=== PATIENT | female | born 2000 | race Caucasian/White ===

== ENCOUNTER 2018-06-25 19:12 | Emergency (ER) | payer OTHER ==
--- NOTE | 2018-06-25 19:23 | ER Report ---
History and Physical Time Seen By MD: 19:22 HPI/ROS CHIEF COMPLAINT: Fever, neck pain, headache HISTORY OF PRESENT ILLNESS: 18-year-old female patient presents to emergency room after having been referred by urgent care. Patient states that she has been ill for approximately one week. She states she's gotten significantly sicker over the last day. She states that she had headache, neck ache, back pain which started today. She states that there is nothing seems to help. She states she's been taking Advil, Aleve with no improvement. She states she had taken some Tylenol cough and cold medicine which initially got sick but has not taken that recently. Patient states that she's not had any nausea, vomiting or diarrhea. She states she has had a little bit of a cough, sore throat. Patient was referred to the emergency room as they were concerned about possible meningeal signs. REVIEW OF SYSTEMS: Respiratory: As noted above Cardiovascular: No chest pain, no palpitations. Gastrointestinal: No vomiting, no abdominal pain. Musculoskeletal: No back pain. Allergies: Coded Allergies: No Known Drug Allergies (Unverified , 06/25/18) Home Meds Active Scripts Ketorolac Tromethamine (KETOROLAC TROMETHAMINE) 10 Mg Tab, 10 MG PO Q6H, #20 TAB Prov:ALEXANDRA RAMÍREZ [facility] 06/25/18 Oseltamivir Phosphate (TAMIFLU) 75 Mg Cap, 75 MG PO BID, #9 CAP Prov:ALEXANDRA RAMÍREZ [facility] 06/25/18 Reported Medications Albuterol Sulfate 90 Mcg/Act (PROAIR HFA 90 MCG/ACT) 8.5 Gm Hfa.aer.ad, 1-2 PUFF IH 3-4XD, INHALER 06/25/18 Colesevelam Hcl (WELCHOL) 625 Mg Tablet, 2 TAB PO BID 06/25/18 Amitriptyline Hcl (AMITRIPTYLINE HCL) 10 Mg Tablet, 20 MG PO QHS, #10 TAB 06/25/18 Dicyclomine Hcl (DICYCLOMINE HCL) 20 Mg Tablet, 20 MG PO TID 06/25/18 Past Medical/Surgical History Patient has a past medical history of asthma, Crohn's, endometriosis. Patient has surgical history of cholecystectomy. Reviewed Nurses Notes: Yes Constitutional Vital Sign - Last 24 Hours 06/25/18 06/25/18 06/25/18 06/25/18 19:17 19:20 19:27 19:42 Temp 99.7 Pulse 123 136 115 Resp 16 B/P (MAP) 149/100 (116) 149/100 Pulse Ox 96 97 99 O2 Delivery Room Air 06/25/18 06/25/18 06/25/18 06/25/18 19:57 20:14 20:19 20:30 Pulse 116 117 B/P (MAP) 134/78 (96) 141/96 (111) Pulse Ox 100 100 06/25/18 06/25/18 06/25/18 06/25/18 20:34 21:00 21:04 21:19 Pulse 119 119 121 B/P (MAP) 120/74 (89) Pulse Ox 94 95 94 06/25/18 06/25/18 21:27 21:30 Temp 100.7 B/P (MAP) 118/78 (91) Physical Exam General Appearance: The patient is alert, has no immediate need for airway protection and no current signs of toxicity. Patient is warm to the touch. ENT: Tympanic membranes are pearly-ramirez, auditory canals are patent, mixed membranes are moist. Respiratory: Chest is non tender, lungs are clear to auscultation. Cardiac: regular rate and rhythm Gastrointestinal: Abdomen is soft and non tender, no masses, bowel sounds normal. Musculoskeletal: Neck: Neck is supple and non tender. Extremities have full range of motion and are non tender. Skin: No rashes or lesions. DIFFERENTIAL DIAGNOSIS: After history and physical exam differential diagnosis was considered for fever in adults including but not limited to pneumonia, urinary tract infection, viral syndrome, and influenza. Medical Decision Making Data Points Result Diagram: 06/25/18194606/25/181946 Laboratory Hematology Test 06/25/18 19:47 06/25/18 20:15 Red Blood Count 5.35 M/uL (4.17-5.56) Mean Corpuscular Volume 87.1 fL (80.0-96.0) Mean Corpuscular Hemoglobin 29.3 pg (26.0-33.0) Mean Corpuscular Hemoglobin Concent 33.6 g/dL (32.0-36.0) Red Cell Distribution Width 13.1 % (11.5-14.5) Mean Platelet Volume 7.3 fL (7.2-11.1) Neutrophils (%) (Auto) 83.2 % (39.4-72.5) Lymphocytes (%) (Auto) 5.9 % (17.6-49.6) Monocytes (%) (Auto) 9.2 % (4.1-12.4) Eosinophils (%) (Auto) 0.6 % (0.4-6.7) Basophils (%) (Auto) 1.1 % (0.3-1.4) Nucleated RBC Relative Count (auto) 0.0 /100WBC Neutrophils # (Auto) 4.4 K/uL (2.0-7.4) Lymphocytes # (Auto) 0.3 K/uL (1.3-3.6) Monocytes # (Auto) 0.5 K/uL (0.3-1.0) Eosinophils # (Auto) 0.0 K/uL (0.0-0.5) Basophils # (Auto) 0.1 K/uL (0.0-0.1) Nucleated RBC Absolute Count (auto) 0.00 K/uL Erythrocyte Sedimentation Rate 7 mm/HOUR (0-20) Sodium Level 139 mmol/L (137-145) Potassium Level 3.4 mmol/L (3.5-5.0) Chloride Level 104 mmol/L (98-107) Carbon Dioxide Level 23 mmol/L (22-31) Blood Urea Nitrogen 7 mg/dl (7-18) Creatinine 0.60 mg/dl (0.52-1.04) Glomerular Filtration Rate Calc > 60.0 Random Glucose 85 mg/dl (75-110) Calcium Level 9.5 mg/dl (8.4-10.2) Total Bilirubin 0.5 mg/dl (0.2-1.3) Aspartate Amino Transf (AST/SGOT) 22 U/L (0-35) Alanine Aminotransferase (ALT/SGPT) 28 U/L (0-56) Alkaline Phosphatase 68 U/L (0-126) C-Reactive Protein 1.3 mg/dl (<1.0) Total Protein 7.8 g/dl (6.3-8.2) Albumin 4.8 g/dl (3.5-5.0) Human Chorionic Gonadotropin, Qual Negative (NEGATIVE) Monoscreen Negative (NEGATIVE) Influenza Virus Type A (PCR) Positive (NEGATIVE) Influenza Virus Type B (PCR) Negative (NEGATIVE) Urine Color Straw Urine Clarity Clear Urine pH 8.0 pH (4.8-9.5) Urine Specific Mullin 1.011 Urine Protein Negative mg/dL (NEGATIVE) Urine Glucose (UA) Negative mg/dL (NEGATIVE) Urine Ketones Trace mg/dL (NEGATIVE) Urine Blood Small (NEGATIVE) Urine Nitrite Negative (NEGATIVE) Urine Bilirubin Negative (NEGATIVE) Urine Urobilinogen Negative mg/dL (0.2-1.9) Urine Leukocyte Esterase Negative (NEGATIVE) Urine RBC None /HPF (0-2/HPF) Urine WBC <1 /HPF (0-5/HPF) Urine Squamous Epithelial Cells Many /LPF (</=FEW) Urine Bacteria Negative /HPF (NONE-FEW) Urine Mucus None /HPF (NONE-FEW) Chemistry Test 06/25/18 19:47 06/25/18 20:15 White Blood Count 5.2 k/uL (4.5-11.0) Red Blood Count 5.35 M/uL (4.17-5.56) Hemoglobin 15.6 g/dL (12.0-16.0) Hematocrit 46.6 % (34.0-47.0) Mean Corpuscular Volume 87.1 fL (80.0-96.0) Mean Corpuscular Hemoglobin 29.3 pg (26.0-33.0) Mean Corpuscular Hemoglobin Concent 33.6 g/dL (32.0-36.0) Red Cell Distribution Width 13.1 % (11.5-14.5) Platelet Count 274 K/uL (150-450) Mean Platelet Volume 7.3 fL (7.2-11.1) Neutrophils (%) (Auto) 83.2 % (39.4-72.5) Lymphocytes (%) (Auto) 5.9 % (17.6-49.6) Monocytes (%) (Auto) 9.2 % (4.1-12.4) Eosinophils (%) (Auto) 0.6 % (0.4-6.7) Basophils (%) (Auto) 1.1 % (0.3-1.4) Nucleated RBC Relative Count (auto) 0.0 /100WBC Neutrophils # (Auto) 4.4 K/uL (2.0-7.4) Lymphocytes # (Auto) 0.3 K/uL (1.3-3.6) Monocytes # (Auto) 0.5 K/uL (0.3-1.0) Eosinophils # (Auto) 0.0 K/uL (0.0-0.5) Basophils # (Auto) 0.1 K/uL (0.0-0.1) Nucleated RBC Absolute Count (auto) 0.00 K/uL Erythrocyte Sedimentation Rate 7 mm/HOUR (0-20) Glomerular Filtration Rate Calc > 60.0 Calcium Level 9.5 mg/dl (8.4-10.2) Total Bilirubin 0.5 mg/dl (0.2-1.3) Aspartate Amino Transf (AST/SGOT) 22 U/L (0-35) Alanine Aminotransferase (ALT/SGPT) 28 U/L (0-56) Alkaline Phosphatase 68 U/L (0-126) C-Reactive Protein 1.3 mg/dl (<1.0) Total Protein 7.8 g/dl (6.3-8.2) Albumin 4.8 g/dl (3.5-5.0) Human Chorionic Gonadotropin, Qual Negative (NEGATIVE) Monoscreen Negative (NEGATIVE) Influenza Virus Type A (PCR) Positive (NEGATIVE) Influenza Virus Type B (PCR) Negative (NEGATIVE) Urine Color Straw Urine Clarity Clear Urine pH 8.0 pH (4.8-9.5) Urine Specific Mullin 1.011 Urine Protein Negative mg/dL (NEGATIVE) Urine Glucose (UA) Negative mg/dL (NEGATIVE) Urine Ketones Trace mg/dL (NEGATIVE) Urine Blood Small (NEGATIVE) Urine Nitrite Negative (NEGATIVE) Urine Bilirubin Negative (NEGATIVE) Urine Urobilinogen Negative mg/dL (0.2-1.9) Urine Leukocyte Esterase Negative (NEGATIVE) Urine RBC None /HPF (0-2/HPF) Urine WBC <1 /HPF (0-5/HPF) Urine Squamous Epithelial Cells Many /LPF (</=FEW) Urine Bacteria Negative /HPF (NONE-FEW) Urine Mucus None /HPF (NONE-FEW) Urinalysis Test 06/25/18 20:15 Urine Color Straw Urine Clarity Clear Urine pH 8.0 pH (4.8-9.5) Urine Specific Mullin 1.011 Urine Protein Negative mg/dL (NEGATIVE) Urine Glucose (UA) Negative mg/dL (NEGATIVE) Urine Ketones Trace mg/dL (NEGATIVE) Urine Blood Small (NEGATIVE) Urine Nitrite Negative (NEGATIVE) Urine Bilirubin Negative (NEGATIVE) Urine Urobilinogen Negative mg/dL (0.2-1.9) Urine Leukocyte Esterase Negative (NEGATIVE) Urine RBC None /HPF (0-2/HPF) Urine WBC <1 /HPF (0-5/HPF) Urine Squamous Epithelial Cells Many /LPF (</=FEW) Urine Bacteria Negative /HPF (NONE-FEW) Urine Mucus None /HPF (NONE-FEW) EKG/Imaging Imaging Study: Frontal and lateral views of the chest Indication: Fever Comparison study: None Findings: PA and lateral views of the chest demonstrate no evidence of acute infiltrate. There is no evidence of pleural effusion. There is no evidence of pneumothorax. The mediastinal, cardiac, and diaphragmatic contours are unremarkable. The visualized bony structures are unremarkable. IMPRESSION: Unremarkable chest. Report Dictated By: Hernan Teran at 06/25/2018 9:09 PM Report E-Signed By: Hernan Teran at 06/25/2018 9:10 PM Study: CT scan of the brain without intravenous contrast. Indication: Fever Comparison study:None Technique: Multiple axial images were obtained through the brain without the use of intravenous contrast. One of the following dose optimization techniques was utilized in the performance of this exam: Automated exposure control; adjustment of the mA and/or kV according to the patient's size; or use of an iterative reconstruction technique. Specific details can be referenced in the facility's radiology CT exam operational policy. The examination demonstrates no evidence of acute intracranial hemorrhage. There is no evidence of extra-axial collection or hydrocephalus. There is no abnormal density identified within the brain parenchyma. There is no evidence of disruption of the peripheral ramirez-white junction. The bony structures are unremarkable. IMPRESSION:Unremarkable CT scan of the brain without contrast. Report Dictated By: Hernan Teran at 06/25/2018 9:08 PM Report E-Signed By: Hernan Teran at 06/25/2018 9:09 PM ED Course/Re-evaluation ED Course Patient was admitted to an exam room, history and physical were obtained. Differential diagnoses were considered. On examination lungs are clear, heart is regular although tachycardia, abdomen was soft nontender. Patient is warm to the touch. An IV was started, a CBC, CMP, urinalysis, influenza, chest x-ray, CT scan of the head were done. Patient was referred by urgent care with concerns about possible meningeal signs. Patient was able to turn her head although she does have some discomfort with that. CBC showed a white count of 5.2, ESR was 7, CRP was 2.5. A lateralized were unremarkable. Urinalysis showed no leukocyte esterase or nitrites. Chest x-ray showed no acute cardiopulmonary processes, and CT scan of the head was negative. The reason I done a CT scan of the head was in case we were going to have to progressed to a lumbar puncture. Fortunately the patient had a positive flu swab. I believe that is the underlying cause of her pain as well as her fever. We will go ahead and start her on Tamiflu. Patient did receive a dose of Toradol which seemed to help with pain. We will go ahead and send her home with a prescription of that. She is return to emergency room if condition worsens. Patient verbalized understanding and agreement with plan. Decision to Disposition Date: Jun 25, 2018 Decision to Disposition Time: 21:36 Depart Departure Latest Vital Signs Vital Signs Date Time Temp Pulse Resp B/P (MAP) Pulse Ox O2 Delivery O2 Flow Rate FiO2 06/25/18 21:30 118/78 (91) 06/25/18 21:27 100.7 06/25/18 21:19 121 94 06/25/18 19:20 16 Room Air Impression: Primary Impression: Influenza A Condition: Improved Disposition: HOME OR SELF-CARE New Scripts Ketorolac Tromethamine (KETOROLAC TROMETHAMINE) 10 Mg Tab 10 MG PO Q6H, #20 TAB Prov: ALEXANDRA RAMÍREZ 06/25/18 Oseltamivir Phosphate (TAMIFLU) 75 Mg Cap 75 MG PO BID, #9 CAP Prov: ALEXANDRA RAMÍREZ 06/25/18 Patient Instructions: Influenza (ED) Additional Instructions: Increase fluid intake. Get plenty of rest. Take Tylenol as needed for fevers or body aches. Stay home until you are fever free for 24 hours. Return to the ER if condition worsens. Follow up with your primary care provider in the next week with any concerns. Take the Toradol as directed. No Ibuprofen, Advil, Motrin, Aleve, or naproxen while taking the Toradol. ALEXANDRA RAMÍREZ Jun 25, 2018 19:22
[2018-06-25] MEDS ORDERED: DICY20TA70 PO (19:24)
[2018-06-25] MEDS ORDERED: COL625PT PO (19:24)
[2018-06-25] MEDS ORDERED: ALBU8.5H IH (19:24)
[2018-06-25] MEDS ORDERED: AMIT-104 PO (19:24)
[2018-06-25] MEDS ORDERED: NS(*) 0.9% 1000 ML BAG 1,000 ML IV ONE ×2 (19:37→20:55)
[2018-06-25] MEDS ORDERED: ACETAMINOPHEN(*)1000 MG/100 ML 100 ML IVPB ONE (19:40)
[2018-06-25 20:14] LABS: PLATELET COUNT, AUTOMATED 274 K/uL (150-450)
--- NOTE | 2018-06-25 21:12 | RADIOLOGY IMAGING REPORT ---
[place] [facility] [place] NAME: Jo Saba : 2000 MR: [id number] V: [id number] EXAM DATE: ORDERING PHYSICIAN: ALEXANDRA RAMÍREZ TECHNOLOGIST: [place] [facility] [place] Jo Saba : 2000 Visit/Account:[id number] Date of Sevice: 06/25/2018 Study: CT scan of the brain without intravenous contrast. Indication: Fever Comparison study:None Technique: Multiple axial images were obtained through the brain without the use of intravenous contr ast. One of the following dose optimization techniques was utilized in the performance of this exam: Autom ated exposure control; adjustment of the mA and/or kV according to the patient's size; or use of an i terative reconstruction technique. Specific details can be referenced in the facility's radiology C T exam operational policy. The examination demonstrates no evidence of acute intracranial hemorrhage. There is no evidence of ex tra-axial collection or hydrocephalus. There is no abnormal density identified within the brain parenchyma. There is no evidence of disruption of the peripheral ramirez-white junction. The bony structures are unremarkable. IMPRESSION:Unremarkable CT scan of the brain without contrast. Report Dictated By: Hernan Teran at 06/25/2018 9:08 PM Report E-Signed By: Hernan Teran at 06/25/2018 9:09 PM WSN:[email or web address] MARIA
--- NOTE | 2018-06-25 21:14 | RADIOLOGY IMAGING REPORT ---
[place] [facility] [place] Jo Saba : 2000 MR: [id number] V: [id number] EXAM DATE: ORDERING PHYSICIAN: ALEXANDRA RAMÍREZ TECHNOLOGIST: Location: [facility] Patient: Jo Saba : 2000 Visit/Account:[id number] Date of Sevice: 06/25/2018 Study: Frontal and lateral views of the chest Indication: Fever Comparison study: None Findings: PA and lateral views of the chest demonstrate no evidence of acute infiltrate. There is no evidence of pleural effusion. There is no evidence of pneumothorax. The mediastinal, cardiac, and diaphragmatic contours are unremarkable. The visualized bony structures are unremarkable. IMPRESSION: Unremarkable chest. Report Dictated By: Hernan Teran at 06/25/2018 9:09 PM Report E-Signed By: Hernan eTran at 06/25/2018 9:10 PM WSN:[email or web address]
[2018-06-25] MEDS ORDERED: KETOROLAC 15 MG/ML VIAL IVP ONE (21:15)
[2018-06-25 21:30] VITALS: BP 118/78
[2018-06-25] MEDS ORDERED: OSE75 PO (21:34)
[2018-06-25] MEDS ORDERED: KET10 PO (21:35)
[2018-06-25] MEDS ORDERED: OSELTAMIVIR PHOS 75 MG CAP PO ONE (21:40)
[2018-06-25] MEDS ORDERED: KETOROLAC TROM 10 MG TAB TH PO ONE (21:40)
== END 2018-06-25 22:06 | disposition home or self-care (01) ==
LOC: ER 19:30
DX: J10.1 Influenza due to other identified influenza virus with other respiratory manifestations (principal); J45.909 Unspecified asthma, uncomplicated; R05 Cough; R50.9 Fever, unspecified
CPT/HCPCS: 36415; 70450; 71046; 81001; 84703; 85025; 85651; 86140; 86308; 87040; 87502; 96374; 96375; 99284; J0131; J1885; J7030; 82040; 82247; 82310; 82374; 82435; 82565; 82947; 84075; 84132; 84155; 84295; 84450; 84460; 84520